=== PATIENT | female | born 1970 | race African-American/Black ===

== ENCOUNTER 2018-07-19 00:50 | Observation (INO) ==
[2018-07-19 01:08] VITALS: TEMP 98.4
[2018-07-19 01:30] LABS: Baso # (Auto) 0.1 th/mm3 (0.0-0.2); Eos # (Auto) 0.2 th/mm3 (0.0-0.4); Eos % (Auto) 2.3 % (0.0-4.0); Hematocrit 33.4 % (35.0-46.0); Hemoglobin 9.9 gm/dL (11.6-15.3); Lymph % (Auto) 37.7 % (9.0-44.0); Mean Corpuscular Hemoglobin 19.4 pg (27.0-34.0); Mean Corpuscular Volume 65.6 fL (80.0-100.0); Mean Platelet Volume 10.3 fL (7.0-11.0); Mono # (Auto) 0.6 th/mm3 (0.0-0.9); Mono % (Auto) 7.7 % (0.0-8.0); Neut # (Auto) 4.1 th/mm3 (1.8-7.7); Neut % (Auto) 51.3 % (16.0-70.0); Platelet Count 251 th/mm3 (150-450); Red Cell Distribution Width 19.2 % (11.6-17.2); White Blood Count 7.9 th/mm3 (4.0-11.0)
[2018-07-19 01:40] LABS: Activated Partial Thrombo Time 22.1 sec (23.4-31.7); Prothrombin Time 9.8 sec (9.8-11.6)
[2018-07-19 01:44] LABS: Mean Corpuscular HGB Conc 29.6 % (32.0-36.0)
[2018-07-19 01:53] LABS: Alanine Aminotransferase 23 U/L (10-53); Albumin 3.8 g/dL (3.4-5.0); Alkaline Phosphatase 91 U/L (45-117); Anion Gap 11 meq/L (5-15); Aspartate Aminotransferase 17 U/L (15-37); Blood Urea Nitrogen 16 mg/dL (7-18); Calcium 9.4 mg/dL (8.5-10.1); Carbon Dioxide 27.4 meq/L (21.0-32.0); Chloride 98 meq/L (98-107); Glomerular Filtration Rate 72 mL/min (>89); Glucose,Random 413 mg/dL (74-106); Magnesium 1.9 mg/dL (1.5-2.5); Potassium 3.3 meq/L (3.5-5.1); Sodium 136 meq/L (136-145); Total Protein 8.6 g/dL (6.4-8.2)
[2018-07-19 02:06] LABS: Creatine Kinase 97 U/L (26-192)
--- NOTE | 2018-07-19 02:10 | XR ---
EXAM DATE: 07/19/2018 1:48 AM EST AGE/SEX: 48 years / Female INDICATIONS: Chest pain. CLINICAL DATA: This is the patient's initial encounter. Patient reports that signs and symptoms have been present for 1 day and indicates a pain score of 6/10. MEDICAL/SURGICAL HISTORY: Hypertension. Diabetes. None. COMPARISON: No prior exams available for comparison. FINDINGS: A single AP view of the chest demonstrates the lungs to be symmetrically aerated without evidence of mass, infiltrate or effusion. The cardiomediastinal contours are unremarkable. Osseous structures a re intact. CONCLUSION: No acute cardiopulmonary disease. Electronically signed by: Miguel Angel Mays MD 07/19/2018 2:08 AM EST
--- NOTE | 2018-07-19 02:42 | ED ---
HPI General Chief Complaint: Chest Pain Stated Complaint: Chest Pain/Sob Time Seen by Provider: 07/19/18 01:04 Source: patient Mode of arrival: ambulatory Limitations: no limitations History of Present Illness HPI narrative: 48-year-old female presents to the emergency department by private transportation for 40 minutes of retrosternal chest pain nonradiating except for the upper back with no shortness of breath mild nausea no sweats and history of high blood pressure medication has been taken for today's dosages. Patient rates pain 6/10 in intensity. Patient is unable to identify exacerbating or alleviating factors. Patient states she has had a small heart attack in the past. MD complaint: Reports chest pain STEMI Alert: No Related Data Home Medications Medication Instructions Recorded Confirmed atorvastatin 10 mg PO DAILY 07/19/18 07/19/18 lisinopril 10 mg PO DAILY 07/19/18 07/19/18 metformin 1,000 mg PO DAILY 07/19/18 07/19/18 Allergies Allergy/AdvReac Type Severity Reaction Status Date / Time sulfamethoxazole Allergy Irritation Verified 07/19/18 01:12 [From Bactrim] trimethoprim [From Bactrim] Allergy Irritation Verified 07/19/18 01:12 Review of Systems ROS: all other systems reviewed are negative [facility] Medical History Medical History Diabetes (Acute) HTN (hypertension) (Acute) Hyperlipidemia (Acute) Surgical History Surgical History H/O tubal ligation (Acute) Social History Social History Substance History: No History of Abuse Smoking Status: Never smoker How Often Do You Have a Drink Containing Alcohol: Never Recent Travel in [facility] within the Last 8 Weeks: No Recent Out of Country Travel within the Last 8 Weeks: No Immunization History Tetanus Immunization: >5 Years Exam Narrative Exam Narrative: GENERAL: Well-nourished, well-developed patient. SKIN: Focused skin assessment warm/dry. HEAD: Normocephalic. EYES: No scleral icterus. No injection or drainage. NECK: Supple, trachea midline. No JVD or lymphadenopathy. CARDIOVASCULAR: Regular rate and rhythm without murmurs, gallops, or rubs. Radial and dorsalis pedis pulses 2+ to palpation bilaterally. RESPIRATORY: Breath sounds equal bilaterally. No accessory muscle use. GASTROINTESTINAL: Abdomen soft, non-tender, nondistended. MUSCULOSKELETAL: No cyanosis, or edema. BACK: Nontender without obvious deformity. No CVA tenderness. Course Initial Documented Vital Signs Temperature 98.4 F 07/19/18 01:03 Pulse Rate 82 07/19/18 01:03 Respiratory Rate 18 07/19/18 01:03 Blood Pressure 108/100 H 07/19/18 01:03 Pulse Oximetry 99 07/19/18 01:03 Last Documented Vital Signs Temperature 98.4 F 07/19/18 07:40 Pulse Rate 75 07/19/18 07:40 Respiratory Rate 16 07/19/18 07:40 Blood Pressure 138/86 07/19/18 07:40 Pulse Oximetry 98 07/19/18 06:36 Medical Decision Making MDM Narrative Medical decision making narrative: Patient placed on teletypesetter monitor with continuous pulse oximetry IV access obtained specimens collected and sent for resulting EKG performed which shows sinus rhythm with no acute ST elevation or acute injury pattern however age-indeterminate QS anteroseptally V1 V2 V3 Patient given sublingual nitroglycerin After 2 sublingual nitroglycerin pain is 0/10 in intensity. Plan will be to admit to chest pain center per protocol Medical Screen Exam Complete: Yes Emergency Medical Condition: Yes Differential Diagnosis Differential Diagnosis: Chest pain atypical chest pain [facility] [place] dissection Medical Records Medical records reviewed: Yes I reviewed the patient's medical records. Lab Data Lab results reviewed: Yes I reviewed the patient's lab results. Result diagrams: 07/19/18 01:15 07/19/18 01:15 Lab Results 07/19/18 07/19/18 07/19/18 Range/Units 01:15 01:15 01:15 WBC 7.9 (4.0-11.0) th/mm3 RBC 5.10 (4.00-5.30) mil/mm3 Hgb 9.9 L (11.6-15.3) gm/dL Hct 33.4 L (35.0-46.0) % MCV 65.6 L (80.0-100.0) fL MCH 19.4 L (27.0-34.0) pg MCHC 29.6 L (32.0-36.0) % RDW 19.2 H (11.6-17.2) % Plt Count 251 (150-450) th/mm3 MPV 10.3 (7.0-11.0) fL Neut % (Auto) 51.3 (16.0-70.0) % Lymph % (Auto) 37.7 (9.0-44.0) % [place] % (Auto) 7.7 (0.0-8.0) % Eos % (Auto) 2.3 (0.0-4.0) % Baso % (Auto) 1.0 (0.0-2.0) % Neut # (Auto) 4.1 (1.8-7.7) th/mm3 Lymph # (Auto) 3.0 (1.0-4.8) th/mm3 [place] # (Auto) 0.6 (0.0-0.9) th/mm3 Eos # (Auto) 0.2 (0.0-0.4) th/mm3 Baso # (Auto) 0.1 (0.0-0.2) th/mm3 WBC Differential . Differential Comment Auto diff final PT (9.8-11.6) sec INR Ratio APTT (23.4-31.7) sec Sodium 136 (136-145) meq/L Potassium 3.3 L (3.5-5.1) meq/L Chloride 98 (98-107) meq/L Carbon Dioxide 27.4 (21.0-32.0) meq/L Anion Gap 11 (5-15) meq/L BUN 16 (7-18) mg/dL Creatinine 0.99 (0.50-1.00) mg/dL Estimated GFR 72 L (>89) mL/min POC Glucose (68-110) mg/dl Random Glucose 413 H (74-106) mg/dL Calcium 9.4 (8.5-10.1) mg/dL Magnesium 1.9 (1.5-2.5) mg/dL Total Bilirubin 0.6 (0.2-1.0) mg/dL AST 17 (15-37) U/L ALT 23 (10-53) U/L Alkaline Phosphatase 91 (45-117) U/L Total Creatine Kinase 97 (26-192) U/L Troponin I Less than 0.02 L (0.02-0.05) ng/mL B-Natriuretic Peptide 24 (0-100) pg/mL Total Protein 8.6 H (6.4-8.2) g/dL Albumin 3.8 (3.4-5.0) g/dL 07/19/18 07/19/18 07/19/18 Range/Units 01:15 04:35 07:30 WBC (4.0-11.0) th/mm3 RBC (4.00-5.30) mil/mm3 Hgb (11.6-15.3) gm/dL Hct (35.0-46.0) % MCV (80.0-100.0) fL MCH (27.0-34.0) pg MCHC (32.0-36.0) % RDW (11.6-17.2) % Plt Count (150-450) th/mm3 MPV (7.0-11.0) fL Neut % (Auto) (16.0-70.0) % Lymph % (Auto) (9.0-44.0) % [place] % (Auto) (0.0-8.0) % Eos % (Auto) (0.0-4.0) % Baso % (Auto) (0.0-2.0) % Neut # (Auto) (1.8-7.7) th/mm3 Lymph # (Auto) (1.0-4.8) th/mm3 [place] # (Auto) (0.0-0.9) th/mm3 Eos # (Auto) (0.0-0.4) th/mm3 Baso # (Auto) (0.0-0.2) th/mm3 WBC Differential Differential Comment PT 9.8 (9.8-11.6) sec INR 1.0 Ratio APTT 22.1 L (23.4-31.7) sec Sodium (136-145) meq/L Potassium (3.5-5.1) meq/L Chloride (98-107) meq/L Carbon Dioxide (21.0-32.0) meq/L Anion Gap (5-15) meq/L BUN (7-18) mg/dL Creatinine (0.50-1.00) mg/dL Estimated GFR (>89) mL/min POC Glucose (68-110) mg/dl Random Glucose (74-106) mg/dL Calcium (8.5-10.1) mg/dL Magnesium (1.5-2.5) mg/dL Total Bilirubin (0.2-1.0) mg/dL AST (15-37) U/L ALT (10-53) U/L Alkaline Phosphatase (45-117) U/L Total Creatine Kinase 76 74 (26-192) U/L Troponin I Less than 0.02 L Less than 0.02 L (0.02-0.05) ng/mL B-Natriuretic Peptide (0-100) pg/mL Total Protein (6.4-8.2) g/dL Albumin (3.4-5.0) g/dL 07/19/18 07/19/18 Range/Units 08:05 14:35 WBC (4.0-11.0) th/mm3 RBC (4.00-5.30) mil/mm3 Hgb (11.6-15.3) gm/dL Hct (35.0-46.0) % MCV (80.0-100.0) fL MCH (27.0-34.0) pg MCHC (32.0-36.0) % RDW (11.6-17.2) % Plt Count (150-450) th/mm3 MPV (7.0-11.0) fL Neut % (Auto) (16.0-70.0) % Lymph % (Auto) (9.0-44.0) % [place] % (Auto) (0.0-8.0) % Eos % (Auto) (0.0-4.0) % Baso % (Auto) (0.0-2.0) % Neut # (Auto) (1.8-7.7) th/mm3 Lymph # (Auto) (1.0-4.8) th/mm3 [place] # (Auto) (0.0-0.9) th/mm3 Eos # (Auto) (0.0-0.4) th/mm3 Baso # (Auto) (0.0-0.2) th/mm3 WBC Differential Differential Comment PT (9.8-11.6) sec INR Ratio APTT (23.4-31.7) sec Sodium (136-145) meq/L Potassium (3.5-5.1) meq/L Chloride (98-107) meq/L Carbon Dioxide (21.0-32.0) meq/L Anion Gap (5-15) meq/L BUN (7-18) mg/dL Creatinine (0.50-1.00) mg/dL Estimated GFR (>89) mL/min POC Glucose 328 H 332 H (68-110) mg/dl Random Glucose (74-106) mg/dL Calcium (8.5-10.1) mg/dL Magnesium (1.5-2.5) mg/dL Total Bilirubin (0.2-1.0) mg/dL AST (15-37) U/L ALT (10-53) U/L Alkaline Phosphatase (45-117) U/L Total Creatine Kinase (26-192) U/L Troponin I (0.02-0.05) ng/mL B-Natriuretic Peptide (0-100) pg/mL Total Protein (6.4-8.2) g/dL Albumin (3.4-5.0) g/dL Imaging Data Radiologist's impression: Chest X-Ray 07/19/18 01:04 CONCLUSION: No acute cardiopulmonary disease. Myocardial Perfusion Scan Nuc Med 07/19/18 10:17 CONCLUSION: Negative examination. ECG Data Attestation: I personally reviewed and interpreted this ECG as follows: (EKG shows NSR, no ST elevation or depression, and no arrhythmias. No significant T -wave inversions. Normal sinus rhythm rate 80 QS anteroseptally age- indeterminate no acute ST elevation) Prior ECG tracings: not available for review Discharge Plan Discharge Disposition Patient Disposition: 30 Still Patient Discharge Condition Condition: Stable Discharge Order Discharge Orders: Discharge Order (Routine); Ordered 07/19/18 Ordered By: Ruperto Delacruz Discharge Details Diagnosis: Chest pain Physicians Team ED Provider: Hayley Pratt Primary Care Provider: Primary Care Lilian Moss Attending Provider: Yossi Hay Status ED Status: Left Department Discharge Information Discharge Date/Time: 07/19/18 10:48
[2018-07-19 05:18] VITALS: RESP 16
[2018-07-19 05:42] LABS: Creatine Kinase 76 U/L (26-192)
[2018-07-19 06:36] VITALS: O2SAT 98
[2018-07-19 07:42] VITALS: BP 138/86; PULSE 75
[2018-07-19] MEDS ORDERED: Potassium Chloride 10 MEQ ER Capsule PO ONE (07:56)
[2018-07-19] MEDS ORDERED: Sod Chloride 0.9% Inj 1,000 ML IV.SIG ONE (07:56)
[2018-07-19 08:26] LABS: Creatine Kinase 74 U/L (26-192)
[2018-07-19] MEDS: Insulin NovoLIN Regular Correctional Sugar Inj SQ SCH ×2 (08:32→12:55)
[2018-07-19] MEDS ORDERED: Aspirin 325 MG Tablet PO SCH (09:00)
--- NOTE | 2018-07-19 10:01 | P.HPCA ---
History of Present Illness Primary Care Physician: No Primary Care Physician Chief Complaint: Chest pain History of Present Illness: This is a 48-year-old female with history of diabetes, hypertension, hyperlipidemia, anemia that presents to ED to evaluate for chest discomfort. Patient states that while sitting in a car yesterday she developed a ache in the left side of her chest that was a 10 out of 10. She immediately felt dizzy. States that usually whenever she gets any type of discomfort she will essentially follow up tightly and the discomfort will resolve quickly. This did not happen yesterday. Symptoms lasted about 45 minutes. She denied shortness of breath nausea or diaphoresis. States she has had cardiac evaluation in the past. States that in 2014 while at [facility] she was told by somebody that she had a heart attack, she had a heart catheterization states that the harpooner told her that there were no blockages but she better get her diabetes under control. She states her blood sugars have been running in the 200-300 range. Currently has no chest discomfort. States she has not followed a harpooner since that heart catheterization stating that she was told that her heart was fine. History of diabetes, hypertension, hyperlipidemia, anemia. States that she has had anemia for several years. She needed a transfusion in 2013. Hemoglobin was 9.9 on this visit and upon reviewing records her hemoglobin was 9.0 in 2009 at this facility. Denies blood in stool. She believes her father had an NH in his 50s. Lifetime non-smoker. - Diagnosis (1) Chest pain (2) Poorly controlled diabetes mellitus (3) Hypertension (4) Anemia (5) Hyperlipidemia Review of Systems General: Patient denies fevers, chills, and recent travel. HEENT: Patient denies headache, sore throat, difficulty swallowing. Cardiovascular: Has the chest discomfort as mentioned above. Denies sensation of heart beating rapidly or irregularly. No syncope. Denies diaphoresis. Respiratory: Denies shortness of breath or inspirational chest discomfort. Denies coughing wheezing or hemoptysis. GI: Patient denies nausea, vomiting, diarrhea, abdominal pain, bloody stools. Musculoskeletal: Patient denies joint pain or edema. Denies calf pain or edema. Neurovascular: Patient denies numbness, tingling, weakness in extremities. Denies headache. Endocrine: Denies polyuria and polydipsia. Hematologic: Denies easy bruising. Skin: Denies rash or itching. PMFSH - History History Provided By: Patient - Medical History Medical History: Medical History (Last Reviewed 07/19/18 @ 02:39 by Hayley Pratt MD) Diabetes HTN (hypertension) Hyperlipidemia - Surgical History Surgical History: Surgical History (Last Reviewed 07/19/18 @ 02:39 by Hayley Pratt MD) H/O tubal ligation - Tobacco History Smoking Status: Never smoker - Alcohol History How Often Do You Have a Drink Containing Alcohol: Never - Substance Use History Substance History: No History of Abuse - Travel History Recent Travel in the [place] Within the Last 8 Weeks: No Recent Travel Out of the Country Within the Last 8 Weeks: No - Immunization History Tetanus Immunization: >5 Years Medications and Allergies Active Medications: Active Medications Aspirin (Aspirin) 325 mg PO DAILY ABIGAIL Last Admin: 07/19/18 08:30 Dose: 325 mg Insulin Human Regular (Novolin R Correctional Sugar Inj) 0 units SQ ACHS ABIGAIL; Protocol Last Admin: 07/19/18 08:32 Dose: Not Given Nitroglycerin (Nitrostat Sl) 0.4 mg SL Q5M PRN PRN Reason: CHEST PAIN Sodium Chloride (Ns Flush) 2 ml IV.FLUSH UNSCH PRN PRN Reason: FLUSH AFTER USING IV ACCESS Sodium Chloride (Ns Flush) 2 ml IV.FLUSH BID ABIGAIL Sodium Chloride (Ns Flush) 2 ml IV.FLUSH PRN PRN PRN Reason: FLUSH AFTER USING IV ACCESS Allergies Allergy/AdvReac Type Severity Reaction Status Date / Time sulfamethoxazole Allergy Irritation Verified 07/19/18 01:12 [From Bactrim] trimethoprim [From Bactrim] Allergy Irritation Verified 07/19/18 01:12 Home Medications Medication Instructions Recorded Confirmed Type atorvastatin 10 mg PO DAILY 07/19/18 07/19/18 History lisinopril 10 mg PO DAILY 07/19/18 07/19/18 History metformin 1,000 mg PO DAILY 07/19/18 07/19/18 History Exam Vital signs: Vital Signs 07/19/18 01:03 07/19/18 01:08 07/19/18 01:30 Temperature 98.4 F Pulse Rate 82 84 101 H Respiratory Rate 18 20 22 Blood Pressure 108/100 H 105/100 H 158/84 H Pulse Oximetry 99 100 98 07/19/18 04:29 07/19/18 04:33 07/19/18 04:43 Temperature Pulse Rate 77 93 H Respiratory Rate 20 21 Blood Pressure 139/78 147/82 H Pulse Oximetry 99 100 97 07/19/18 05:17 07/19/18 06:36 07/19/18 07:40 Temperature 98.4 F Pulse Rate 83 75 Respiratory Rate 16 16 Blood Pressure 138/86 Pulse Oximetry 98 Intake & Output 07/18/18 07/19/18 07/19/18 18:59 06:59 18:59 Weight 77.564 kg Narrative: GENERAL: This is a well-nourished, well-developed patient, in no apparent distress. Patient speaks in clear complete sentences. Patient is pleasant. HEENT: Head is atraumatic and normocephalic. Neck is supple without lymphadenopathy and trachea is midline. No JVD or carotid bruits. CARDIOVASCULAR: Regular rate and rhythm without murmurs, gallops, or rubs. RESPIRATORY: Clear to auscultation. Breath sounds equal bilaterally. No wheezes , rales, or rhonchi. Chest wall is nontender. No use of accessory muscles. GASTROINTESTINAL: Abdomen is nontender, nondistended. Abdomen soft. No obvious pulsatile mass or bruit. No CVA tenderness. Strong femoral pulses bilaterally. Normal bowel sounds in all quadrants. MUSCULOSKELETAL: Patient is moving upper and lower extremities freely. No calf tenderness or edema, no Homans sign. Strong pulses in upper and lower extremities. NEUROLOGICAL: Patient is alert and oriented. Cranial nerves 2-12 are grossly intact. No focal deficits and speech is clear. SKIN: No rash and turgor is normal. Results 07/19/18 01:15 07/19/18 01:15 Cardiac Enzymes 07/19/18 07/19/18 07/19/18 Range/Units 01:15 01:15 04:35 AST 17 (15-37) U/L Troponin I Less than 0.02 L Less than 0.02 L (0.02-0.05) ng/mL B-Natriuretic Peptide 24 (0-100) pg/mL 07/19/18 Range/Units 07:30 AST (15-37) U/L Troponin I Less than 0.02 L (0.02-0.05) ng/mL B-Natriuretic Peptide (0-100) pg/mL Coagulation 11/15/18 11/15/18 Range/Units 01:15 01:15 PT 9.8 (9.8-11.6) sec APTT 22.1 L (23.4-31.7) sec B-Natriuretic Peptide 24 (0-100) pg/mL CBC 07/19/18 Range/Units 01:15 WBC 7.9 (4.0-11.0) th/mm3 RBC 5.10 (4.00-5.30) mil/mm3 Hgb 9.9 L (11.6-15.3) gm/dL Hct 33.4 L (35.0-46.0) % Plt Count 251 (150-450) th/mm3 Neut # (Auto) 4.1 (1.8-7.7) th/mm3 Lymph # (Auto) 3.0 (1.0-4.8) th/mm3 [place] # (Auto) 0.6 (0.0-0.9) th/mm3 Eos # (Auto) 0.2 (0.0-0.4) th/mm3 Baso # (Auto) 0.1 (0.0-0.2) th/mm3 Comprehensive Metabolic Panel 07/19/18 Range/Units 01:15 Sodium 136 (136-145) meq/L Potassium 3.3 L (3.5-5.1) meq/L Chloride 98 (98-107) meq/L Carbon Dioxide 27.4 (21.0-32.0) meq/L BUN 16 (7-18) mg/dL Creatinine 0.99 (0.50-1.00) mg/dL Calcium 9.4 (8.5-10.1) mg/dL AST 17 (15-37) U/L ALT 23 (10-53) U/L Alkaline Phosphatase 91 (45-117) U/L Total Protein 8.6 H (6.4-8.2) g/dL Albumin 3.8 (3.4-5.0) g/dL Intake and Output 07/18/18 07/19/18 07/19/18 22:59 06:59 14:59 Other: Weight 77.564 kg - Imaging and Cardiology Imaging: Impressions Chest X-Ray 07/19/18 01:04 CONCLUSION: No acute cardiopulmonary disease. EKG interpretations - EKG EKG shows: sinus rhythm (EKGs are sinus rhythm without significant ST segment depressions or elevations.) Caprini VTE Risk Assessment Caprini VTE Risk Assessment: No/Low Risk (score <= 1) Caprini Risk Assessment Model: Point Value = 1 Point Value = 2 Point Value = 3 Point Value = 5 Age 41-60 Minor surgery BMI > 25 kg/m2 Swollen legs Varicose veins or History of unexplained or recurrent spontaneous Oral contraceptives or hormone replacement Sepsis (< 1 month) Serious lung disease, including pneumonia (< 1 month) Abnormal pulmonary function Acute myocardial infarction Congestive heart failure (< 1 month) History of inflammatory bowel disease Medical patient at bed rest Age 61-74 Arthroscopic surgery Major open surgery (> 45 min) Laparoscopic surgery (> 45 min) Malignancy Confined to bed (> 72 hours) Immobilizing plaster cast Central venous access Age >= 75 History of VTE Family history of VTE Factor V Leiden Prothrombin [id number] Lupus anticoagulant Anticardiolipin antibodies Elevated serum homocysteine Heparin-induced thrombocytopenia Other congenital or acquired thrombophilia Stroke (< 1 month) Elective arthroplasty Hip, pelvis, or leg fracture Acute spinal cord injury (< 1 month) Prophylaxis Regimen: Total Risk Factor Score Risk Level Prophylaxis Regimen 0-1 Low Early ambulation 2 Moderate Order ONE of the following: *Sequential Compression Device (SCD) *Heparin 5000 units SQ BID 3-4 Higher Order ONE of the following medications: *Heparin 5000 units SQ TID *Enoxaparin/Lovenox 40 mg SQ daily (WT < 150 kg, CrCl > 30 mL/min) *Enoxaparin/Lovenox 30 mg SQ daily (WT < 150 kg, CrCl > 10-29 mL/min) *Enoxaparin/Lovenox 30 mg SQ BID (WT < 150 kg, CrCl > 30 mL/min) AND/OR *Sequential Compression Device (SCD) 5 or more Highest Order ONE of the following medications: *Heparin 5000 units SQ TID (Preferred with Epidurals) *Enoxaparin/Lovenox 40 mg SQ daily (WT < 150 kg, CrCl > 30 mL/min) *Enoxaparin/Lovenox 30 mg SQ daily (WT < 150 kg, CrCl > 10-29 mL/min) *Enoxaparin/Lovenox 30 mg SQ BID (WT < 150 kg, CrCl > 30 mL/min) AND *Sequential Compression Device (SCD) Assessment and Plan - Assessment (1) Chest pain Code(s): R07.9 - Chest pain, unspecified Status: Acute (2) Poorly controlled diabetes mellitus Code(s): E11.65 - Type 2 diabetes mellitus with hyperglycemia Status: Acute (3) Hypertension Code(s): I10 - Essential (primary) hypertension Status: Acute (4) Anemia Code(s): D64.9 - Anemia, unspecified Status: Acute (5) Hyperlipidemia Code(s): E78.5 - Hyperlipidemia, unspecified Status: Acute - Plan * Chest pain: Patient has had serial cardiac enzymes and EKGs for ruling out purposes. She also states that she has had a normal heart catheterization in 2015 which was about 3 years ago. She has multiple risk factors for heart disease and has a story that is suspicious. She will have a Lexiscan. She will be discharged home if stress test is nonischemic with instructions to follow-up with PCP. * Hypertension: Continue medication. * Hyperlipidemia: Continue medication. * Diabetes: Patient admits to not truly following a diabetic diet. She needs to resume her medication. She is to follow diabetic diet. She will be on sliding scale insulin coverage while in chest pain center. She is to follow-up with her PCP for further management of her diabetes. * Anemia: Patient will need management with her physician. Patient is stable at this time. She is agreeable to this plan.
[2018-07-19] MEDS ORDERED: Lisinopril 10 MG Tablet PO SCH (10:15)
--- NOTE | 2018-07-19 10:33 | P.PNCA ---
Subjective Interval history: This patient was presented by the physician guest history clerk and then seen and examined together. The history is she presented to me differed somewhat from the history he originally obtained and that she indicated to me that she was sitting in the car watching a movie when she developed severe squeezing mid lower chest discomfort that lasted for several minutes at a time. This would relieve and then recur. It was associated with a sense of difficulty getting a breath some nausea and also diaphoresis. Otherwise the history is pretty much as recorded. Medications and Allergies Active Medications: Active Medications Aspirin (Aspirin) 325 mg PO DAILY [facility] Last Admin: 07/19/18 08:30 Dose: 325 mg Atorvastatin Calcium (Lipitor) 10 mg PO DAILY [facility] Insulin Human Regular (Novolin R [employer] Sugar Inj) 0 units SQ ACHS [facility]; Protocol Last Admin: 07/19/18 08:32 Dose: Not Given Lisinopril (Prinivil) 10 mg PO DAILY [facility] Nitroglycerin (Nitrostat Sl) 0.4 mg SL Q5M PRN PRN Reason: CHEST PAIN Sodium Chloride (Ns Flush) 2 ml IV.FLUSH UNSCH PRN PRN Reason: FLUSH AFTER USING IV ACCESS Sodium Chloride (Ns Flush) 2 ml IV.FLUSH BID ABIGAIL Sodium Chloride (Ns Flush) 2 ml IV.FLUSH PRN PRN PRN Reason: FLUSH AFTER USING IV ACCESS Allergies Allergy/AdvReac Type Severity Reaction Status Date / Time sulfamethoxazole Allergy Irritation Verified 07/19/18 01:12 [From Bactrim] trimethoprim [From Bactrim] Allergy Irritation Verified 07/19/18 01:12 Home Medications Medication Instructions Recorded Confirmed Type atorvastatin 10 mg PO DAILY 07/19/18 07/19/18 History lisinopril 10 mg PO DAILY 07/19/18 07/19/18 History metformin 1,000 mg PO DAILY 07/19/18 07/19/18 History Physical Exam Vital signs: Vital Signs 07/19/18 01:03 07/19/18 01:08 07/19/18 01:30 Temperature 98.4 F Pulse Rate 82 84 101 H Respiratory Rate 18 20 22 Blood Pressure 108/100 H 105/100 H 158/84 H Pulse Oximetry 99 100 98 07/19/18 04:29 07/19/18 04:33 07/19/18 04:43 Temperature Pulse Rate 77 93 H Respiratory Rate 20 21 Blood Pressure 139/78 147/82 H Pulse Oximetry 99 100 97 07/19/18 05:17 07/19/18 06:36 07/19/18 07:40 Temperature 98.4 F Pulse Rate 83 75 Respiratory Rate 16 16 Blood Pressure 138/86 Pulse Oximetry 98 Intake & Output 07/18/18 07/19/18 07/19/18 18:59 06:59 18:59 Weight 77.564 kg Narrative: Physical exam is as recorded reverified Neck supple no JVD masses nodes or bruits Chest clear to auscultation with no rales wheezes or rhonchi but a fair amount of tenderness under the left pectoralis in the mid portion Cardiovascular regular rhythm no gallops rubs but a soft 1/6 systolic murmur near the apex Results 07/19/18 01:15 07/19/18 01:15 Cardiac Enzymes 07/19/18 07/19/18 07/19/18 Range/Units 01:15 01:15 04:35 AST 17 (15-37) U/L Troponin I Less than 0.02 L Less than 0.02 L (0.02-0.05) ng/mL B-Natriuretic Peptide 24 (0-100) pg/mL 07/19/18 Range/Units 07:30 AST (15-37) U/L Troponin I Less than 0.02 L (0.02-0.05) ng/mL B-Natriuretic Peptide (0-100) pg/mL Coagulation 07/19/18 07/19/18 Range/Units 01:15 01:15 PT 9.8 (9.8-11.6) sec APTT 22.1 L (23.4-31.7) sec B-Natriuretic Peptide 24 (0-100) pg/mL CBC 07/19/18 Range/Units 01:15 WBC 7.9 (4.0-11.0) th/mm3 RBC 5.10 (4.00-5.30) mil/mm3 Hgb 9.9 L (11.6-15.3) gm/dL Hct 33.4 L (35.0-46.0) % Plt Count 251 (150-450) th/mm3 Neut # (Auto) 4.1 (1.8-7.7) th/mm3 Lymph # (Auto) 3.0 (1.0-4.8) th/mm3 [place] # (Auto) 0.6 (0.0-0.9) th/mm3 Eos # (Auto) 0.2 (0.0-0.4) th/mm3 Baso # (Auto) 0.1 (0.0-0.2) th/mm3 Comprehensive Metabolic Panel 07/19/18 Range/Units 01:15 Sodium 136 (136-145) meq/L Potassium 3.3 L (3.5-5.1) meq/L Chloride 98 (98-107) meq/L Carbon Dioxide 27.4 (21.0-32.0) meq/L BUN 16 (7-18) mg/dL Creatinine 0.99 (0.50-1.00) mg/dL Calcium 9.4 (8.5-10.1) mg/dL AST 17 (15-37) U/L ALT 23 (10-53) U/L Alkaline Phosphatase 91 (45-117) U/L Total Protein 8.6 H (6.4-8.2) g/dL Albumin 3.8 (3.4-5.0) g/dL Intake and Output 07/18/18 07/19/18 07/19/18 22:59 06:59 14:59 Other: Weight 77.564 kg - Imaging and Cardiology Imaging: Impressions Chest X-Ray 07/19/18 01:04 CONCLUSION: No acute cardiopulmonary disease. Assessment and Plan - Assessment (1) Chest pain Code(s): R07.9 - Chest pain, unspecified Status: Acute Plan: Will obtain nuclear stress test for further evaluation since she is already ruled standard chest pain center protocol. Also discussed the imperative of establishing with a primary care physician for management of her diabetes which is clearly out of control. (2) Poorly controlled diabetes mellitus Code(s): E11.65 - Type 2 diabetes mellitus with hyperglycemia Status: Acute (3) Hypertension Code(s): I10 - Essential (primary) hypertension Status: Acute (4) Anemia Code(s): D64.9 - Anemia, unspecified Status: Acute (5) Hyperlipidemia Code(s): E78.5 - Hyperlipidemia, unspecified Status: Acute - Plan * Chest pain: Patient has had serial cardiac enzymes and EKGs for ruling out purposes. She also states that she has had a normal heart catheterization in 2014 which was about 3 years ago. She has multiple risk factors for heart disease and has a story that is suspicious. She will have a Lexiscan. She will be discharged home if stress test is nonischemic with instructions to follow-up with PCP. * Hypertension: Continue medication. * Hyperlipidemia: Continue medication. * Diabetes: Patient admits to not truly following a diabetic diet. She needs to resume her medication. She is to follow diabetic diet. She will be on sliding scale insulin coverage while in chest pain center. She is to follow-up with her PCP for further management of her diabetes. * Anemia: Patient will need management with her physician. Patient is stable at this time. She is agreeable to this plan.
--- NOTE | 2018-07-19 11:43 | ECG ---
Date Performed: 07/19/2018 Time Performed: 04:26:16 PTAGE: 48 years EKG: Sinus rhythm ANTEROSEPTAL MYOCARDIAL INFARCTION ABNORMAL ECG No significant change PREVIOUS TRACING : 07/19/2018 01.07 DOCTOR: Mikey Spain Interpretating Date/Time 07/19/2018 11:42:27
--- NOTE | 2018-07-19 11:43 | ECG ---
Date Performed: 07/19/2018 Time Performed: 07:33:04 PTAGE: 48 years EKG: Sinus rhythm ANTEROSEPTAL MYOCARDIAL INFARCTION ABNORMAL ECG No significant change PREVIOUS TRACING : 07/19/2018 04.26 DOCTOR: Mikey Spain Interpretating Date/Time 07/19/2018 11:41:26
--- NOTE | 2018-07-19 11:44 | ECG ---
Date Performed: 07/19/2018 Time Performed: 01:07:19 PTAGE: 48 years EKG: Sinus rhythm ANTEROSEPTAL MYOCARDIAL INFARCTION ABNORMAL ECG No significant change PREVIOUS TRACING : 05/18/2006 21.02 DOCTOR: Mikey Spain Interpretating Date/Time 07/19/2018 11:42:58
[2018-07-19] MEDS ORDERED: Regadenoson Inj 0.4 MG/5 ML Syringe IV.PUSH ONE (12:25)
--- NOTE | 2018-07-19 14:24 | NM ---
EXAM DATE: 07/19/2018 2:03 PM EST AGE/SEX: 48 years / Female INDICATIONS:Angina. . Left chest pain with dizziness. CLINICAL DATA: This is the patient's initial encounter. Patient reports that signs and symptoms have been present for 1 day and indicates a pain score of 10/10. MEDICAL/SURGICAL HISTORY: Diabetes mellitus type II. Hypertension. Hypercholesterolemia. Tuba l ligation. COMPARISON: No prior exams available for comparison. DOSE: 8.7 mCi Tc 99m Myoview at rest 27.4 mCi [id number] at stress 0.4 mg Lexiscan STRESS SYMPTOMS: Dyspnea. EJECTION FRACTION: 55 % TECHNIQUE: The patient underwent pharmacologic stress with infusion of prescribed dose. Continuous ECG tracing was monitored during stress. Gated SPECT imaging was performed after stress and conventi onal SPECT imaging was performed at rest. The examination was performed on a SPECT/CT scanner, both attenuation and non-corrected datasets were reviewed. FINDINGS: Distribution: The maximum perfused segment at stress is in the lateral wall. Perfusion Study: The pattern of perfusion at stress is within normal limits. Gated Study: There are intact wall motion and wall thickening without hypokinetic or dyskinetic segm ents. The ejection fraction is calculated at 55%. RISK CATEGORY: Low (<1% Annual Motality Rate) CONCLUSION: Negative examination. Electronically signed by: Andres Collins MD 07/19/2018 2:22 PM EST
--- NOTE | 2018-07-20 11:47 | TR ---
Date Performed: 07/19/2018 Time Performed: 12:24:03 DOCTOR: Mikey Spain DRUG LIST: CLINICAL HISTORY: REASON FOR TEST: REASON FOR ENDING: OBSERVATION: CONCLUSION: Lexiscan stress test was performed under standard four minute protocol. Radionuclide was injected one minute prior to ending the test. No electrocardiographic abormalities were present to suggest ischemia. Nuclear imaging and interpretation are pending. COMMENTS:
== END 2018-07-19 15:15 | disposition home or self-care (01) ==
LOC: NEDA 00:50 → NEPC 00:50 → NEDA 05:42 → NEDH 08:56 → NEPHCDU 10:51
PROVIDERS: ADMIT Internal Medicine Cardiovascular Disease; ATTEND Internal Medicine Cardiovascular Disease
DX: Z82.49 Family history of ischemic heart disease and other diseases of the circulatory system; I25.2 Old myocardial infarction; E11.65 Type 2 diabetes mellitus with hyperglycemia; Z88.2 Allergy status to sulfonamides; E78.5 Hyperlipidemia, unspecified; Z98.51 Tubal ligation status; Z79.84 Long term (current) use of oral hypoglycemic drugs; R07.9 Chest pain, unspecified; R01.1 Cardiac murmur, unspecified; D64.9 Anemia, unspecified; I10 Essential (primary) hypertension; R94.31 Abnormal electrocardiogram [ECG] [EKG]